=== PATIENT | female | born 1960 | race Caucasian/White ===

== ENCOUNTER → 2019-08-31 | Day surgery (SDC) | payer OTHER ==
[~2019-08-31] VITALS: Ht 162.6 cm; Wt 88.9 kg
[~2019-08-31] MED LIST: ARTIFICIAL TEAR15 M1 OPHTHALMIC; ASA81BEC PO; BUSPIRONE HCL10 MG PO; CALCIUM 500 +1 EAC6 PO; CALCIUM500 MG PO; CYMBALTA60 MG PO; DEPAKOTE250 MG PO; DEPO-PROVER150 MG/M1 IM; DULCOLAX5 MG PO; FAZACLO200 MG PO; FAZACLO25 MG PO; FENOFIBRATE160 MG PO; FISH OIL 1,0001 EAC5 PO; HYDROCHLOROTHIA25 M1 PO; KLOR-CON 10 ER10 MEQ PO; LORAZEPAM 0.50.5 MG PO; MOM PO; MYLANTA 12 OZ355 M1 PO; OFLOXACIN5 ML OPHTHALMIC; PRILOSEC 20 MG20 MG PO; REFRESH LACRI-3.5 GM OPHTHALMIC; THERA TEARS1 EAC1 OPHTHALMIC; TRIAMCINOLONE A80 G2 TRANSDERM; ZOCOR 20 MG TAB20 M1 PO; ZYRTEC10 M2 PO
--- NOTE | ~2019-08-31 | O ---
[facility] [place] [address] OPERATIVE REPORT Name: MISBAH MICHAEL Room #: REG [facility]#: [id number] Admission: 08/31/19 Attend Phys: Thierry Lindsay MD Discharge: Date of : 62 Report #: [id number] THIS REPORT FOR: cc: ADAN NIEVES MD, RADHIKA MD White,Thierry Stanley MD ~ CC: ADAN Lindsay DATE OF SERVICE: 08/31/2019 PREOPERATIVE DIAGNOSIS: Right upper lid retraction with corneal decompensation. POSTOPERATIVE DIAGNOSIS: Right upper lid retraction with corneal decompensation. PROCEDURE: Right upper lid retraction repair. SURGEON: Thierry Lindsay MD TRANSIT WORKER: None. ANESTHESIA: MAC. COMPLICATIONS: None. 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 She presents today for a right upper lid retraction repair in order to attempt to reduce her risk for loss of the eye and retain a vision that she presently still has. Informed consent was obtained to include but not limited to the potential risk for bleeding, infection, overcorrection, under correction, and the potential need for further surgery or treatment. DESCRIPTION OF PROCEDURE: The patient was taken to the operating room where 2% Xylocaine with epinephrine mixed with equal parts of 0.75% Marcaine with Wydase was administered transcutaneously to the right upper lid. The patient was subsequently prepped and draped in the usual sterile fashion. The traditional right upper lid crease incision was then outlined with a fine tip skin marking pen. The incisions were then made with a Faraz scissor and hemostasis achieved with diligent pinpoint monopolar cautery to occasional use of a high-temp cautery. The dissection was then carried down through the [address] [address] OPERATIVE REPORT Name: MICHAELMISBAH Room #: REG [facility].#: [id number] Admission: 08/31/19 Attend Phys: Thierry Lindsay MD Discharge: Date of : 62 Report #: [id number] septum to the area of what should have been preaponeurotic fat. This did not appear to be normal fat likely because of her prior surgeries. It was teased free back off of the levator. The levator tendon was then disinserted from the anterior surface of the tarsal plate across the width of the lid. It was allowed to retract back above the level of the tarsal plate. There were two portions of either a prior sling or [place] ligament medially and laterally that were cut to allow the lid to fall as this appeared to be what was holding it into position it was in. A strip of redundant tissue anteriorly was then excised across the inferior portion of the wound. Hemostasis was re-achieved. The upper lid crease was then reformed with interrupted 6-0 chromic sutures. The skin was then closed with 6-0 plain gut sutures. The wound was then cleaned and dressed with erythromycin ointment. The patient was transported to the recovery area having tolerated the procedure well with no anesthetic or operative complications being noted. By: [id number] Thierry Lindsay MD /nt
[2019-08-31 09:44] VITALS: BP 122/71
== END | disposition home or self-care (01) ==
LOC: OR 08:08
DX: H02.531 Eyelid retraction right upper eyelid (principal); H18.891 Other specified disorders of cornea, right eye; I10 Essential (primary) hypertension; D64.9 Anemia, unspecified; E78.5 Hyperlipidemia, unspecified; F20.9 Schizophrenia, unspecified; F32.9 Major depressive disorder, single episode, unspecified; F41.9 Anxiety disorder, unspecified; K21.9 Gastro-esophageal reflux disease without esophagitis; Z98.890 Other specified postprocedural states; Z79.899 Other long term (current) drug therapy; Z79.82 Long term (current) use of aspirin; Z87.891 Personal history of nicotine dependence; Z91.041 Radiographic dye allergy status; Z88.8 Allergy status to other drugs, medicaments and biological substances
CPT/HCPCS: 50010; 50101; 50386; 50398; 51636; 56531; 62110; 62850; 70005